=== PATIENT | male | born 1950 | race African-American/Black ===

== ENCOUNTER 2024-03-21 08:51 | Emergency (ER) | payer MEDICAID ==
[~2024-03-21] VITALS: Ht 175.3 cm; Wt 91.0 kg
[2024-03-21 09:24] LABS: BASOPHILS % 0.4 % (0.0-2.0); EOSINOPHILS % 8.4 % (0.0-5.0); HEMATOCRIT. 45.2 % (42.0-52.0); HEMOGLOBIN. 14.8 g/dL (14.0-18.0); LYMPHOCYTES % 23.3 % (20.0-50.0); MEAN CORPUSCULAR HEMOGLOBIN 30.4 pg (28.0-32.0); MEAN CORPUSCULAR HGB CONC 32.8 g/dL (31.0-37.0); MEAN CORPUSCULAR VOLUME 92.5 fL (80.0-94.0); MEAN PLATELET VOLUME 8.4 fl (7.4-10.4); MONOCYTES % 9.8 % (2.0-8.0); NEUTROPHILS % 58.1 % (40.0-76.0); PLATELET 439 x1000/uL (130-400); RED BLOOD CELL COUNT 4.88 mill/uL (4.7-6.1); RED CELL DISTRIBUTION WIDTH 14.4 % (11.6-14.6); WHITE BLOOD COUNT 10.3 x1000/uL (4.5-11.0)
[2024-03-21 09:25] LABS: CHLORIDE 109 mEq/L (98-107); POTASSIUM 4.3 mEq/L (3.5-5.1); SODIUM 143 mEq/L (136-145)
[2024-03-21 09:26] LABS: CALCIUM 9.1 mg/dL (8.7-10.4); CARBON DIOXIDE 30 mEq/L (21-32)
[2024-03-21 09:31] LABS: CREATININE 0.8 mg/dL (0.6-1.3); GLUCOSE 101 mg/dL (70-105); UREA NITROGEN BLOOD 10 mg/dL (9-23)
[2024-03-21 09:32] LABS: TROPONIN I HIGH SENSITIVITY 5 ng/L (3.0-53)
[2024-03-21 09:47] VITALS: PULSE 63; RESP 16; O2SAT 93
[2024-03-21] MEDS: ALBUTEROL (0.083%) 2.5MG/3ML NEB HHN SCH (09:47)
[2024-03-21] MEDS: IPRATROPIUM BROMIDE (0.02%) 0.5MG/2.5ML NEB HHN NR (09:47)
[2024-03-21 10:17] VITALS: PULSE 70; RESP 16; O2SAT 100
[2024-03-21 10:37] VITALS: PULSE 68; RESP 20; O2SAT 100
[2024-03-21] MEDS: PREDNISONE 20MG TABLET PO NR (10:53)
[2024-03-21] MEDS ORDERED: ALBU90AE INH (11:51)
[2024-03-21] MEDS ORDERED: P20 MT (11:51)
[2024-03-21 12:13] VITALS: BP 139/67; PULSE 65; RESP 18; TEMP 97.9
== END 2024-03-21 12:37 | disposition home or self-care (01) ==
LOC: ER 08:51
DX: J45.901 Unspecified asthma with (acute) exacerbation (principal)
CPT/HCPCS: 80048; 83880; 85025; 84484; 36415; 71045; 94640; 93005; 99285; J7512; Z7610 ×3